=== PATIENT | female | born 1960 | race Caucasian/White ===

== ENCOUNTER 2025-03-22 06:17 | Day surgery (SDC) | payer OTHER, SELFPAY | END 2025-03-22 11:34 | disposition home or self-care (01) | LOC: GI 06:17 | PROVIDERS: ATTENDING PHYSICIAN Internal Medicine | DX: Z12.11 Encounter for screening for malignant neoplasm of colon (principal); D12.2 Benign neoplasm of ascending colon; K62.1 Rectal polyp; Z86.0101 Personal history of adenomatous and serrated colon polyps | CPT/HCPCS: 45390; 45380; 88305 ==